=== PATIENT | male | born 1955 | race Caucasian/White ===

== ENCOUNTER → 2020-04-18 | Outpatient (CLI) | payer MEDICARE ==
[2020-04-18 13:27] LABS: BASO # 0.1 (0.02-0.10); EOS # 0.2 (0.04-0.40); EOS % 2.9 % (0.0-4.0); HEMATOCRIT 49.8 % (42.0-52.0); LYMPH# 1.5 (1.50-4.00); MEAN CELL VOLUME 88 fl (78-100); MEAN CORPUSCULAR HEMOGLOBIN 30 pg (27-31); MEAN CORPUSCULAR HGB CONC 34 g/dL (33-37); MEAN PLATELET VOLUME 8.6 fl (7.4-10.4); MONO # 0.6 (0.20-0.80); NEU # 2.9 (1.40-6.50); PLATELET COUNT 186 K/mm3 (130-400); RED BLOOD COUNT 5.65 M/mm3 (4.20-5.60); RED CELL DISTRIBUTION WIDTH 13.7 % (11.5-14.5); WHITE BLOOD COUNT 5.1 K/mm3 (4.8-10.8)
== END ==
LOC: LAB 13:15
PROVIDERS: Nurse Practitioner
DX: R59.0 Localized enlarged lymph nodes (principal)

== ENCOUNTER → 2020-04-19 | Outpatient (CLI) | payer MEDICARE | LOC: RAD 08:21 | DX: R59.0 Localized enlarged lymph nodes (principal) ==

== ENCOUNTER 2024-05-28 09:51 | Outpatient (RCR) | payer MEDICARE | END 2024-06-06 | disposition home or self-care (01) | LOC: PT | DX: M54.16 Radiculopathy, lumbar region (principal) ==

== ENCOUNTER 2024-06-08 07:59 | Outpatient (RCR) | payer MEDICARE | END 2024-07-07 | disposition home or self-care (01) | LOC: PT | DX: M54.16 Radiculopathy, lumbar region (principal) ==

== ENCOUNTER 2024-07-09 07:49 | Outpatient (RCR) | payer MEDICARE | END 2024-08-07 | LOC: PT | DX: M54.16 Radiculopathy, lumbar region (principal) ==